=== PATIENT | female | born 1950 | race Caucasian/White ===

== ENCOUNTER → 2016-10-14 | Outpatient (CLI) | payer MEDICARE ==
--- NOTE | 2016-10-16 21:04 | BD ---
EXAMINATION TYPE: MG DEXA axial skeleton. DATE OF EXAM: 10/14/2016 8:55 AM COMPARISON: NONE CLINICAL HISTORY: 66-year-old female postmenopausal screening Height: 62 IN Weight: 149 LBS FRAX RISK QUESTIONS: Alcohol (3 or more units per day): NO Family History (Parent hip fracture): NO Glucocorticoids (More than 3mos): NO (Ex: prednisone, prednisolone, methylprednisolone, dexamethasone, and hydrocortisone). History of Fracture in Adulthood: YES LT ELBOW AGE 62 Secondary Osteoporosis: 1. Type 1 Diabetes: NO 2. Hyperthyroidism: NO 3. Menopause before 45: NO 4. Malnutrition: NO 5. Chronic liver disease: NO Rheumatoid Arthritis: NO Current Tobacco Use: NO RISK FACTORS HISTORY OF: Other Fractures since Age 49: YES LT ELBOW When: AGE 62 Active: YES Diet low in dairy products/other sources of calcium: YES Postmenopausal woman: AGE 44 Take estrogen and/or progesterone medications: NOT NOW How long: TOOK CONTROL FOR 5 YRS AGE 25-30 MEDICATIONS: Additional Medications: BIOTIN, CRANBERRY PILLS EXAM MEASUREMENTS: Bone mineral densitometry was performed using the [employer] System. Bone mineral density as measured about the Lumbar spine is: ----- L1-L4(G/cm2): 0.846 T Score Values are as follows: ----- L2: -2.9 ----- L3: -2.7 ----- L4: -3.2 ----- L1-L4: -2.8 Bone mineral density has: Decreased -15.5% since study of: 04/17/2001 Bone mineral density about the R hip (g/cm2): 0.701 Bone mineral density about the L hip (g/cm2): 0.704 T Score values are as follows: -----R Neck: -2.4 -----L Neck: -2.4 -----R Total: -1.9 -----L Total: -1.7 Bone mineral density has: Decreased -9.7% since study of: 04/17/2001 IMPRESSION: Osteoporosis (T Score less than -2.5) as noted by T Score values at the There is increased fracture risk and therapy is usually indicated based on age. Re-Screen 1-2 years. NOTE: T-SCORE=SD OF THE YOUNG ADULT MEAN.
--- NOTE | 2016-10-17 11:46 | MM ---
Reason for exam: screening (asymptomatic). Last mammogram was performed 1 year ago. History: Patient is postmenopausal. Benign right US cyst aspiration of the right breast, September 03, 2007. Benign excisional biopsy of the left breast, December 26, 2001. Took hormonal contraceptives for 5 years. Took estrogen for 5 years. Took progesterone for 5 years. Physical Findings: A clinical breast exam by your physician is recommended on an annual basis and results should be correlated with mammographic findings. MG 3D Screening Mammo W/Cad Bilateral CC and MLO view(s) were taken. Prior study comparison: October 12, 2015, bilateral MG screening mammo w CAD. October 09, 2014, bilateral MG screening mammo w CAD. October 08, 2012, bilateral digital screening mammo w/CAD. The breast tissue is heterogeneously dense. This may lower the sensitivity of mammography. Previous mammotome biopsy within the right and left breast. Asymmetric breast tissue right stable. There is no discrete abnormality. ASSESSMENT: Benign, BI-RAD 2 RECOMMENDATION: Routine screening mammogram of both breasts in 1 year.
== END | disposition home or self-care (01) ==
LOC: RADMAMWWP 08:52
PROVIDERS: ATTEND Family Medicine
DX: Z12.31 Encounter for screening mammogram for malignant neoplasm of breast (principal); M81.0 Age-related osteoporosis without current pathological fracture
CPT/HCPCS: 77080; 77063; G0202

== ENCOUNTER → 2018-05-10 | Outpatient (CLI) | payer MEDICARE ==
--- NOTE | 2018-05-11 14:05 | MM ---
Reason for exam: screening (asymptomatic). Last mammogram was performed 1 year and 7 months ago. History: Patient is postmenopausal. Benign right US cyst aspiration of the right breast, September 03, 2007. Benign excisional biopsy of the left breast, December 26, 2001. Took hormonal contraceptives for 5 years. Took estrogen for 5 years. Took progesterone for 5 years. Physical Findings: A clinical breast exam by your physician is recommended on an annual basis and results should be correlated with mammographic findings. MG 3D Screening Mammo W/Cad Bilateral CC and MLO view(s) were taken. Prior study comparison: October 14, 2016, bilateral MG 3d screening mammo w/cad. October 12, 2015, bilateral MG screening mammo w CAD. The breast tissue is heterogeneously dense. This may lower the sensitivity of mammography. Previous mammotome biopsy in the right and left breast. No significant changes when compared with prior studies. ASSESSMENT: Benign, BI-RAD 2 RECOMMENDATION: Routine screening mammogram of both breasts in 1 year.
== END | disposition home or self-care (01) ==
LOC: RADMAMWWP 08:02
PROVIDERS: ATTEND Family Medicine
DX: Z12.31 Encounter for screening mammogram for malignant neoplasm of breast (principal)
CPT/HCPCS: 77063; 77067

== ENCOUNTER → 2020-01-20 | Outpatient (CLI) | payer MEDICARE ==
--- NOTE | 2020-01-20 19:55 | BD ---
EXAMINATION TYPE: Axial Bone Density DATE OF EXAM: 01/20/2020 COMPARISON: NONE CLINICAL HISTORY: Postmenopausal screening Height: 5 FT 2 1/2 IN Weight: 148 FRAX RISK QUESTIONS: Alcohol (3 or more units per day): NO Family History (Parent hip fracture): NO Glucocorticoids (More than 3mos): NO (Ex: prednisone, prednisolone, methylprednisolone, dexamethasone, and hydrocortisone). History of Fracture in Adulthood: YES Secondary Osteoporosis: 1. Type 1 Diabetes: NO 2. Hyperthyroidism: NO 3. Menopause before 45: YES 4. Malnutrition: NO 5. Chronic liver disease: NO Rheumatoid Arthritis: NO Current Tobacco Use: NO RISK FACTORS HISTORY OF: Family History of Osteoporosis: NO Active: SOMEWHAT Postmenopausal woman: AROUND AGE 44 Take estrogen and/or progesterone medications: UNSURE OF HOW LONG MEDICATIONS: Additional Medications: CHOLESTEROL MEDS, NEXIUM Additional History: EXAM MEASUREMENTS: Bone mineral densitometry was performed using the [employer] System. Bone mineral density as measured about the Lumbar spine is: ----- L1-L4(G/cm2): 0.848 T Score Values are as follows: ----- L2: -2.7 ----- L3: -2.8 ----- L4: -3.0 ----- L1-L4: -2.8 Bone mineral density has: INCREASED 1.4 % since study of: 2017 Bone mineral density about the R hip (g/cm2): 0.700 Bone mineral density about the L hip (g/cm2): 0.666 T Score values are as follows: -----R Neck: -2.4 -----L Neck: -2.7 -----R Total: -2.2 -----L Total: -2.0 Bone mineral density has: DECREASED -5.1 % since study of: 2017 IMPRESSION: Osteoporosis (T Score less than -2.5). There is increased fracture risk and therapy is usually indicated based on age. Re-Screen 1-2 years. NOTE: T-SCORE=SD OF THE YOUNG ADULT MEAN.
--- NOTE | 2020-01-21 13:50 | MM ---
Reason for exam: screening (asymptomatic). Last mammogram was performed 1 year and 8 months ago. History: Patient is postmenopausal. Benign right US cyst aspiration of the right breast, September 03, 2007. Benign excisional biopsy of the left breast, December 26, 2001. Took hormonal contraceptives for 5 years. Took estrogen for 5 years. Took progesterone for 5 years. Physical Findings: A clinical breast exam by your physician is recommended on an annual basis and results should be correlated with mammographic findings. MG 3D Screening Mammo W/Cad Bilateral CC and MLO view(s) were taken. Prior study comparison: May 10, 2018, bilateral MG 3d screening mammo w/cad. October 14, 2016, bilateral MG 3d screening mammo w/cad. The breast tissue is heterogeneously dense. This may lower the sensitivity of mammography. There are benign appearing round calcifications bilaterally. Previous mammotome biopsy in the right and left breast. There is no discrete abnormality. ASSESSMENT: Benign, BI-RAD 2 RECOMMENDATION: Routine screening mammogram of both breasts in 1 year.
== END | disposition home or self-care (01) ==
LOC: RADMAMWWP 09:54
PROVIDERS: ATTEND Family Medicine
DX: Z12.31 Encounter for screening mammogram for malignant neoplasm of breast (principal); M81.0 Age-related osteoporosis without current pathological fracture; Z78.0 Asymptomatic menopausal state
CPT/HCPCS: 77063; 77067; 77080

== ENCOUNTER → 2021-02-15 | Outpatient (CLI) | payer MEDICARE ==
--- NOTE | 2021-02-16 13:40 | MM ---
Reason for exam: screening (asymptomatic). Last mammogram was performed 1 year and 1 month ago. History: Patient is postmenopausal. Benign right US cyst aspiration of the right breast, September 03, 2007. Benign excisional biopsy of the left breast, December 26, 2001. Took hormonal contraceptives for 5 years. Took estrogen for 5 years. Took progesterone for 5 years. Physical Findings: A clinical breast exam by your physician is recommended on an annual basis and results should be correlated with mammographic findings. MG 3D Screening Mammo W/Cad Bilateral CC and MLO view(s) were taken. XCCL view(s) were taken of the right breast. Prior study comparison: January 20, 2020, bilateral MG 3d screening mammo w/cad. May 10, 2018, bilateral MG 3d screening mammo w/cad. There are scattered fibroglandular densities. No significant changes when compared with prior studies. ASSESSMENT: Benign, BI-RAD 2 RECOMMENDATION: Routine screening mammogram of both breasts in 1 year.
== END | disposition home or self-care (01) ==
LOC: RADMAMWWP 11:16
PROVIDERS: ATTEND Family Medicine
DX: Z12.31 Encounter for screening mammogram for malignant neoplasm of breast (principal)
CPT/HCPCS: 77063; 77067

== ENCOUNTER → 2022-09-12 | Outpatient (CLI) | payer MEDICARE ==
--- NOTE | 2022-09-12 13:23 | BD ---
EXAMINATION TYPE: Axial Bone Density DATE OF EXAM: 09/12/2022 CLINICAL HISTORY: 72 years old Female. ICD-10 CODE: M81.0 OSTEOPOROSIS Height: 62 Weight: 158.3 FRAX RISK QUESTIONS: Alcohol (3 or more units per day): no Family History (Parent hip fracture): no Glucocorticoids (More than 3mos): no (Ex: prednisone, prednisolone, methylprednisolone, dexamethasone, and hydrocortisone). History of Fracture in Adulthood: yes Secondary Osteoporosis: 1. Type 1 Diabetes: no 2. Hyperthyroidism: no 3. Menopause before 45: no 4. Malnutrition: no 5. Chronic liver disease: no Rheumatoid Arthritis: no Current Tobacco Use: no RISK FACTORS HISTORY OF: Surgery to Spine/Hip(right/left)/Wrist (right/left): no Family History of Osteoporosis: no Active: yes Diet low in dairy products/other sources of calcium: yes Postmenopausal woman: yes Lost more than 2 inches in height since high school: no MEDICATIONS: Additional History: EXAM MEASUREMENTS: Bone mineral densitometry was performed using the [employer] System. Bone mineral density as measured about the Lumbar spine is: ----- L1-L4(G/cm2): 0.835 T Score Values are as follows: ----- L1: -2.4 ----- L2: -2.7 ----- L3: -2.6 ----- L4: 3.7 ----- L1-L4: -2.9 Z Score Values are as follows: ----- L1: -0.9 ----- L2: -1.2 ----- L3: -1.1 ----- L4: -2.2 ----- L1-L4: -1.4 Bone mineral density has: decreased -1.5 % since study of: 01.20.2020 Bone mineral density about the R hip (g/cm2): 0.733 Bone mineral density about the L hip (g/cm2): 0.752 T Score values are as follows: -----R Neck: -2.5 -----L Neck: -2.6 -----R Total: -2.2 -----L Total: -2.0 Z Score values are as follows: -----R Neck: -0.7 -----L Neck: -0.6 -----R Total: -0.8 -----L Total: -0.9 Bone mineral density has: 0.0 % since study of: 01.20.2020 FRAX%s: The graph provided illustrates a 24.4% chance for a major osteoporotic fx and a 7.0% chance f or the hips probability for fx in 10 years time. IMPRESSION: Osteoporosis (T Score less than -2.5). There is increased fracture risk and therapy is usually indicated based on age. Re-Screen 1-2 years. NOTE: T-SCORE=SD OF THE YOUNG ADULT MEAN.
--- NOTE | 2022-09-13 11:46 | MM ---
Reason for Exam: Screening (asymptomatic). Last mammogram was performed 1 year(s) and 7 month(s) ago. Patient History: Menarche at age 11. First Full-Term at age 18. Postmenopausal. Patient used Estrogen for 5 years. Patient used Progesterone for 5 years. Hormonal Contraceptives for 5 years until age 29. 09/03/2007, Benign Cyst Aspiration on the right side. 12/26/2001, Benign Excisional Biopsy on the left side. Risk Values: Romelia 5 year model risk: 1.5%. NCI Lifetime model risk: 3.7%. Prior Study Comparison: 05/10/2018 Bilateral Screening Mammogram, [facility]. 01/20/2020 Bilateral Screening Mammogram, [facility]. 02/15/2021 Bilateral Screening Mammogram, [facility]. Tissue Density: The breast tissue is heterogeneously dense. This may lower the sensitivity of mammography. Findings: Analyzed By CAD. Bilateral biopsy clips. Stable masslike appearance of fibroglandular tissue bilaterally. There is no suspicious group of microcalcifications or new suspicious mass in either breast. Overall Assessment: Benign, BI-RAD 2 Management: Screening Mammogram of both breasts in 1 year. A clinical breast exam by your physician is recommended on an annual basis and results should be correlated with mammographic findings. [facility] will attempt to contact patient to return for supplemental views and ultrasound if indicated. Electronically signed and approved by: Magdaleno Thomson DO
== END | disposition home or self-care (01) ==
LOC: RADMAMWWP 10:34
PROVIDERS: ATTEND Family Medicine
DX: Z12.31 Encounter for screening mammogram for malignant neoplasm of breast (principal); M81.0 Age-related osteoporosis without current pathological fracture; M85.89 Other specified disorders of bone density and structure, multiple sites; Z78.0 Asymptomatic menopausal state
CPT/HCPCS: 77063; 77067; 77080

== ENCOUNTER → 2022-12-07 | Outpatient (CLI) | payer MEDICARE ==
[2022-12-07 10:35] LABS: African American GFR (CKD) >90 (>60 ml/min/1.73 sqM); Blood Urea Nitrogen 17 mg/dL (7-17); Non-African American GFR(CKD) >90 (>60 ml/min/1.73 sqM)
--- NOTE | 2022-12-07 11:26 | CT ---
EXAMINATION TYPE: CT brain w con CT DLP: 1098.80 mGycm, Automated exposure control for dose reduction was used. DATE OF EXAM: 12/07/2022 11:14 AM COMPARISON: None. CLINICAL INDICATION:Female, 72 years old with history of R42 DIZZINESS AND GIDDINESS; PHH, Dizziness, vertigo TECHNIQUE: Axial CT images of the brain were obtained after the uneventful administration of 100 cc o f Isovue-[address] intraven[address] One or more CT dose reduction strategies were utilized during this examin ation. Coronal and sagittal reformats reviewed. FINDINGS: Extra-axial spaces: No abnormal extra-axial fluid collections. Ventricular system: Within normal limits Cerebral parenchyma: Mild cerebral atrophy. No acute intraparenchymal hemorrhage or mass effect. The kraus-white junction is well differentiated. Scattered hypoattenuating areas are seen within the whit e matter. No abnormal enhancement is seen after the administration of intravenous contrast. Cerebellum: Unremarkable. Mass effect: No evidence of midline shift. Intracranial vasculature: unremarkable Soft tissues: Normal. Calvarium/osseous structures: No depressed skull fracture. Paranasal sinuses and mastoid air cells: Clear. Visualized orbits: Orbital contents are intact. IMPRESSION: 1. No acute intracranial process and no evidence to suggest intracranial mass. 2. Nonspecific white matter changes, likely secondary to chronic small vessel ischemic disease.
== END | disposition home or self-care (01) ==
LOC: RADCTMAIN 09:36
PROVIDERS: ATTEND Family Medicine
DX: Z01.812 Encounter for preprocedural laboratory examination (principal); R90.82 White matter disease, unspecified; R42 Dizziness and giddiness
CPT/HCPCS: 82565; 84520; 70460; 36415; Q9967

== ENCOUNTER 2022-12-31 00:48 | Emergency (ER) | payer MEDICARE ==
[2022-12-31 01:02] VITALS: RESP 18; TEMP 97.8
[2022-12-31] MEDS ORDERED: FAMOTIDINE 20 MG TAB PO STA (01:11)
[2022-12-31] MEDS ORDERED: hydrOXYzine HCL 25 MG TAB PO STA (01:11)
[2022-12-31] MEDS ORDERED: DEXAMETHASONE SOD PHOSPHATE 10 MG/ML 1 ML VIAL IM STA (01:11)
--- NOTE | 2022-12-31 01:58 | ED ---
Allergic Reaction HPI - General Chief complaint: Allergic Reaction Stated complaint: Allergic Reaction Time Seen by Provider: 12/31/22 01:03 Source: patient, RN notes reviewed, old records reviewed Mode of arrival: ambulatory Limitations: no limitations - History of Present Illness Initial Comments: This is a 72-year-old female to the emergency department today. Patient presented after seeing bug bite likely bee sting. Patient sustained bug bite bee sting to leg. Left leg about 5 hours ago. Patient noticed tonight that she developed some scratchiness in her throat and difficulty swallowing with some lip tingling. 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 No tongue swelling no shortness of breath. Patient is mildly anxious on arrival. Patient does have a significant history of ALLERGIC reaction to bee sting MD Complaint: allergic reaction Exposure: unknown, insect bite Symptoms: itching, lip swelling, difficulty swallowing Severity: mild Treatment Prior to Arrival: none Previous Allergy History: none - Related Data Previous Rx's Medication Instructions Recorded Famotidine [Pepcid] 40 mg PO BID #28 tablet 12/31/22 hydrOXYzine HCL [Atarax] 25 mg PO TID PRN #15 tab 12/31/22 predniSONE 50 mg PO DAILY #5 tab 12/31/22 Allergies Allergy/AdvReac Type Severity Reaction Status Date / Time bee venom protein (honey bee) Allergy Rash/Hives Verified 12/31/22 00:56 Sulfa (Sulfonamide Allergy Unknown Verified 12/31/22 00:56 Antibiotics) Childhood Review of Systems ROS Statement: Those systems with pertinent positive or pertinent negative responses have been documented in the HPI. ROS Other: All systems not noted in ROS Statement are negative. Past Medical History Past Medical History: No Reported History History of Any Multi-Drug Resistant Organisms: None Reported Past Surgical History: Tubal Ligation Past Psychological History: No Psychological Hx Reported Smoking Status: Never smoker Past Alcohol Use History: Occasional Past Drug Use History: None Reported General Exam Limitations: no limitations General appearance: alert, in no apparent distress Head exam: Present: atraumatic, normocephalic, normal inspection Eye exam: Present: normal appearance, PERRL, EOMI. Absent: scleral icterus, conjunctival injection, periorbital swelling ENT exam: Present: normal exam, mucous membranes moist Neck exam: Present: normal inspection. Absent: tenderness, meningismus, lymphadenopathy Respiratory exam: Present: normal lung sounds bilaterally. Absent: respiratory distress, wheezes, rales, rhonchi, stridor Cardiovascular Exam: Present: regular rate, normal rhythm, normal heart sounds. Absent: systolic murmur, diastolic murmur, rubs, gallop, clicks GI/Abdominal exam: Present: soft, normal bowel sounds. Absent: distended, tenderness, guarding, rebound, rigid Extremities exam: Present: normal inspection, full ROM, normal capillary refill. Absent: tenderness, pedal edema, joint swelling, calf tenderness Back exam: Present: normal inspection Neurological exam: Present: alert, oriented X3, CN II-XII intact Psychiatric exam: Present: normal affect, normal mood Skin exam: Present: warm, dry, intact, normal color. Absent: rash Course Vital Signs 12/31/22 12/31/22 00:57 01:58 Temperature 97.8 F Pulse Rate 116 H 80 Respiratory 18 18 Rate Blood Pressure 145/93 132/72 O2 Sat by Pulse 94 L 96 Oximetry - Reevaluation(s) Reevaluation #1: 12/31/22 01:57 Medical record is reviewed Reevaluation #2: 12/31/22 01:57 Patient is showing some improvement here in the ER Reevaluation #3: 12/31/22 02:15 Symptoms are dramatically improved Reevaluation #4: 12/31/22 01:58 Was pt. sent in by a medical professional or institution ([facility] [place], [employer], urgent care, hospital, or fpc...) When possible be specific @ -no Did you speak to anyone other than the patient for history (EMS, parent, family, police, friend...)? What history was obtained from this source @ -no Did you review nursing and triage notes (agree or disagree)? Why? @ -agree Are old charts reviewed (outside hosp., previous admission, EMS record, old EKG, old radiological studies, urgent care reports/EKG's, fpc records)? Report findings @ -yes Differential Diagnosis (chest pain, altered mental status, abdominal pain women, abdominal pain men, vaginal bleeding, weakness, fever, dyspnea, syncope, headache, dizziness, GI bleed, back pain, seizure, CVA, palpatations, mental health, musculoskeletal)? @ -prior EKG interpreted by me (3pts min.). @ -no X-rays interpreted by me (1pt min.). @ -no CT interpreted by me (1pt min.). @ -no U/S interpreted by me (1pt. min.). @ -no What testing was considered but not performed or refused? (CT, X-rays, U/S, labs)? Why? @ -none What meds were considered but not given or refused? Why? @ -none Did you discuss the management of the patient with other professionals (professionals i.e. DrBhavana, PA, BEAUTY CULTURE TEACHER, lab, RT, psych nurse, psychosocial rehabilitation counselor, identity management developer, teacher, special assets officer, shoe parts caser)? Give summary @ -no Was smoking cessation discussed for >3mins.? @ -no Was critical care preformed (if so, how long)? @ -no Were there social determinants of health that impacted care today? How? (Homelessness, low income, unemployed, alcoholism, drug addiction, transportation, low edu. Level, literacy, decrease access to med. care, [facility], rehab)? @ -none Was there de-escalation of care discussed even if they declined (Discuss DNR or withdrawal of care, Hospice)? DNR status @ -no What co-morbidities impacted this encounter? (DM, HTN, Smoking, COPD, CAD, Cancer, CVA, ARF, Chemo, Hep., AIDS, mental health diagnosis, sleep apnea, morbid obesity)? @ -none Was patient admitted / discharged? Hospital course, mention meds given and route, prescriptions, significant lab abnormalities, going to OR and other pertinent info. @ - 72 female to the emergency department for evaluation, bee sting and reaction. Patient feels improved here in the emergency department can be discharged home no current distress Discharged Undiagnosed new problem with uncertain prognosis? @ -no Drug Therapy requiring intensive monitoring for toxicity (Heparin, Nitro, Insulin, Cardizem)? @ -no Were any procedures done? @ -no Diagnosis/symptom? @ -Bee sting, anaphylaxis Acute, or Chronic, or Acute on Chronic? @ -Acute Uncomplicated (without systemic symptoms) or Complicated (systemic symptoms)? @ -Complicated Side effects of treatment? @ -no Exacerbation, Progression, or Severe Exacerbation? @ -exacerbation Poses a threat to life or bodily function? How? (Chest pain, USA, PA, pneumonia, PE, COPD, DKA, ARF, appy, cholecystitis, CVA, Diverticulitis, Homicidal, Suicidal, threat to staff... and all critical care pts) @ -yes anaphylaxis Medical Decision Making - Medical Decision Making 72 female to the emergency department for evaluation, bee sting and reaction. Patient feels improved here in the emergency department can be discharged home no current distress Disposition Clinical Impression: Allergic reaction to insect sting Disposition: HOME SELF-CARE Condition: Good Instructions (If sedation given, give patient instructions): Insect Bite or Sting (ED), Anaphylaxis (ED) Prescriptions: hydrOXYzine HCL [Atarax] 25 mg PO TID PRN #15 tab PRN Reason: Itching Famotidine [Pepcid] 40 mg PO BID #28 tablet predniSONE 50 mg PO DAILY #5 tab Is patient prescribed a controlled substance at d/c from ED?: No Referrals: Kristine Peterson MD [Primary Care Provider] - 1-2 days Time of Disposition: 02:15
[2022-12-31 01:59] VITALS: BP 132/72; PULSE 80
== END 2022-12-31 02:24 | disposition home or self-care (01) ==
LOC: EC 00:48
DX: T63.441A Toxic effect of venom of bees, accidental (unintentional), initial encounter (principal); Z88.2 Allergy status to sulfonamides; Z91.030 Bee allergy status
CPT/HCPCS: 99283; 96372; J1100

== ENCOUNTER → 2024-02-28 | Outpatient (CLI) | payer MEDICARE ==
--- NOTE | 2024-03-04 08:32 | MM ---
Reason for Exam: Screening (asymptomatic). Last mammogram was performed 1 year(s) and 5 month(s) ago. Patient History: Menarche at age 11. First Full-Term at age 18. Postmenopausal. Patient used Estrogen for 5 years. Patient used Progesterone for 5 years. Hormonal Contraceptives for 5 years until age 29. 09/03/2007, Benign Cyst Aspiration on the right side. 12/26/2001, Benign Excisional Biopsy on the left side. Risk Values: Romelia 5 year model risk: 1.5%. NCI Lifetime model risk: 3.5%. Prior Study Comparison: 01/20/2020 Bilateral Screening Mammogram, [facility]. 02/15/2021 Bilateral Screening Mammogram, [facility]. 09/12/2022 Bilateral MG 3D screening mammo w/cad, [facility]. Tissue Density: The breasts are heterogeneously dense, which may obscure small masses. Findings: Analyzed By CAD. There is no suspicious group of microcalcifications or new suspicious mass in either breast. Overall Assessment: Benign, BI-RAD 2 Management: Screening Mammogram of both breasts in 1 year. . Patient should continue monthly self-breast exams. A clinical breast exam by your physician is recommended on an annual basis. This exam should not preclude additional follow-up of suspicious palpable abnormalities. Note on Romelia scores and lifetime risk: 1. A Romelia score greater than 3% is considered moderate risk. If this is the case, consider specialist referral to assess eligibility for a risk reducing agent. 2. If overall lifetime risk for the development of breast cancer is 20% or higher, the patient may qualify for future screening with alternating mammogram and breast MRI. [facility], , 03/04/2024 8:29 AM. Electronically signed and approved by: Main Jeffery M.D. Radiologis
== END | disposition home or self-care (01) ==
LOC: RADMAMWWP 10:00
PROVIDERS: ATTEND Family Medicine
CPT/HCPCS: 77063; 77067

== ENCOUNTER 2024-05-14 08:35 | Day surgery (SDC) | payer MEDICARE ==
[2024-05-10 14:11] VITALS: BMI 26.5
--- NOTE | 2024-05-14 07:34 | P.HPIHPCON ---
History of Present Illness H&P Date: 05/14/24 Chief Complaint: Stress urinary incontinence This is a 73-year-old female with history of stress urinary incontinence, has failed Kegel exercises and continues to have symptoms. Underwent a urodynamic which was consistent with stress incontinence, option of a sling versus bulking agent were discussed. She agreed to proceed with a transobturator sling. Aware of the risk which includes but not limited to bleeding, infection, persistent incontinence, urinary retention. Discussed also I will be using a mesh sling. Aware of the risk of mesh erosion into the bladder, urethra and vagina. She understood all the risk and agreed to proceed Consent for Procedure: I have explained the operation/procedure to the patient, including the risks, benefits, side effects, alternative therapies (including not receiving the proposed treatment or service), the likelihood of the patient achieving his/her goals, and potential recuperation problems for the procedure/sedation/analgesia, as well as any blood products, if indicated. I also explained to the patient the risks, benefits and side effects of the alternatives, as well as the risks related to not receiving the proposed procedure, care, treatment, or services. Past Medical History Past Medical History: Cancer, GERD/Reflux, Hyperlipidemia Additional Past Medical History / Comment(s): Osteoporosis. Hx melonoma-no c hemo, no radiation, Had spot removed. History of Any Multi-Drug Resistant Organisms: None Reported Past Surgical History: Orthopedic Surgery, Tubal Ligation Additional Past Surgical History / Comment(s): Fx elbow w/surgery. Colonoscopy Past Anesthesia/Blood Transfusion Reactions: No Reported Reaction Additional Past Anesthesia/Blood Transfusion Reaction / Comment(s): No hx of blood transfusion to date. Smoking Status: Former smoker - Past Family History Sister(s) Family Medical History: Cancer Additional Family Medical History / Comment(s): Stomach cancer. Medications and Allergies Home Medications Medication Instructions Recorded Confirmed Type Alendronate Sodium [Fosamax] 70 mg PO FR 05/10/24 05/10/24 History Esomeprazole Magnesium [NexIUM] 40 mg PO QAM 05/10/24 05/10/24 History Ibuprofen/Diphenhydramine HCl 1 each PO HS 05/10/24 05/10/24 History [Advil Pm Liqui-Gels] Ibuprophen(Unknown Dose) 1 dose PO Q8H PRN 05/10/24 05/10/24 History Multivitamins, Thera [Multivitamin 1 tab PO QAM 05/10/24 05/10/24 History (formulary)] Rosuvastatin [Crestor] 5 mg PO QAM 05/10/24 05/10/24 History Vit D3 (Unknown Dose) 1 dose PO QAM 05/10/24 05/10/24 History Allergies Allergy/AdvReac Type Severity Reaction Status Date / Time bee venom protein (honey bee) Allergy Rash/Hives Verified 05/10/24 13:53 Sulfa (Sulfonamide Allergy Unknown Verified 05/10/24 13:53 Antibiotics) Childhood hornet venom AdvReac Swelling/tongue-face Verified 05/10/24 13:53 swelling Surgical - Exam - General no distress, no pain - Eyes normal ocular movement, no pale - ENT normal nares, normal mucosa - Respiratory normal expansion, normal respiratory effort - Abdomen Abdomen: soft, non tender - Psychiatric oriented to time, oriented to person, oriented to place Assessment and Plan Assessment: OR for transobturator sling
[~2024-05-14 08:35] MED LIST: HYDROmorphone 0.5 MG/0.5 ML SYRINGE IVP PRN; MIDAZOLAM 2 MG/2 ML VIAL IV PRN
[2024-05-14] MEDS: IV FLUID CONTINUATION 1,000 ML IV ONE (09:32)
[2024-05-14] MEDS: LACTATED RINGERS 1,000 ML IV SCH (09:52)
[2024-05-14] MEDS: DEXAMETHASONE SOD PHOSPHATE 4 MG/ML 1 ML VIAL IV ONE (09:52)
[2024-05-14] MEDS: ONDANSETRON 4 MG/2 ML VIAL IVP ONE (09:52)
[2024-05-14] MEDS ORDERED: fentaNYL (PF) 50 MCG/ML 2 ML AMP ONE (10:25)
[2024-05-14] MEDS ORDERED: ePHEDrine 50 MG/ML 1 ML VIAL ONE (10:25)
[2024-05-14] MEDS ORDERED: LIDOCAINE 1% INJ 10MG/ML (20 ML MDV) ONE (10:25)
[2024-05-14] MEDS ORDERED: PROPOFOL 10 MG/ML 20 ML VIAL IV ONE (10:25)
[2024-05-14] MEDS ORDERED: HYDROcodone/APAP 5-325MG 1 EACH TAB PO PRN (10:42)
[2024-05-14] MEDS ORDERED: ONDANSETRON 4 MG/2 ML VIAL IVP PRN (10:43)
[2024-05-14] MEDS: LIDOCAINE 1%-EPI 1:100,000 20 ML VIAL SQ ONE ×2 (10:55→11:19)
--- NOTE | 2024-05-14 13:21 | P.OP ---
Date of Procedure: 05/14/24 Preoperative Diagnosis: Stress urinary incontinence Postoperative Diagnosis: Same Procedure(s) Performed: Transobturator mid urethral sling Implants: Obtryx mid urethral sling Anesthesia: ESTHER Surgeon: Susahnt Ames Estimated Blood Loss (ml): 50 Pathology: none sent Condition: stable Disposition: PACU Indications for Procedure: This is a 73-year-old female with history of stress urinary incontinence, has failed Kegel exercises and continues to have symptoms. Underwent a urodynamic which was consistent with stress incontinence, option of a sling versus bulking agent were discussed. She agreed to proceed with a transobturator sling. Aware of the risk which includes but not limited to bleeding, infection, persistent incontinence, urinary retention. Discussed also I will be using a mesh sling. Aware of the risk of mesh erosion into the bladder, urethra and vagina. She understood all the risk and agreed to proceed Description of Procedure: The patient was taken to the operating room and placed in the dorsal lithotomy position, with her legs supported in Luis stirrups. The perineum, lower abdomen, and vagina were prepped and draped sterilely. A 16-Malay Trinh catheter was placed. Silk sutures were placed to retract the labia laterally on each side. 0.5% Marcaine with epinephrine was injected submucosally within the anterior vaginal wall, over the urethra. The scalpel was then used to make an anterior midline vaginal incision over the urethra. Metzenbaum scissors were used to dissect laterally within the submucosal plane, to the inferior pubic ramus. The scalpel was used to make bilateral groin incisions at the level of the clitoris. Subcutaneous tissues were spread with a hemostat. Each of the helical needles were passed through the respective groin incision, and turned such that the needle tip wrapped around the pubis. The needle tips were guided digitally into the vaginal incision. The Obtryx graft, which had been previously soaked in antibiotic solution, was secured to the needle tips in the standard fashion. The needles were then withdrawn, and the position of the graft was adjusted such that it overlie the mid urethra, as desired. With a hemostat placed between the graft and the urethra to prevent tension of the graft over the urethra, the plastic sheath was removed from the ends of the graft. The ends of the graft were cut beneath the skin incisions, and these incisions were closed using 4-0 Vicryl suture in a subcuticular fashion. Hemostasis within the vaginal incision was adequate, and the vaginal incision was closed using 2-0 Vicryl suture in a running fashion. Cystoscopy was performed. The 30 lens was used to introduce the 19-Malay Storz cystoscopic sheath through the urethra and into the bladder under direct vision. The urethra and bladder were unremarkable. There was no evidence of perforation. Both ureteral orifices were of normal anatomic location and configuration, and clear urine effluxed from both. No tumors or foreign bodies were seen. The cystoscope was removed, and the Trinh catheter was replaced into the bladder. Vaginal packing was placed. All sponge and needle counts were correct. The patient tolerated the procedure well was taken to the recovery room in stable condition.
[2024-05-14] MEDS: KETOROLAC 15 MG/ML 1 ML VIAL IVP SCH (18:07)
[2024-05-14] MEDS: HEPARIN SODIUM,PORCINE 5,000 UNIT/ML 1 ML VIAL SQ SCH (18:07)
[2024-05-14] MEDS: DEXTROSE 5%-0.45% NACL 1,000 ML IV SCH (18:08)
[2024-05-14] MEDS: CIPROFLOXACIN HCL 500 MG TAB PO SCH (20:16)
[2024-05-15] MEDS: PANTOPRAZOLE 40 MG TABLET PO SCH (06:34)
[2024-05-15] MEDS: ATORVASTATIN 10 MG TAB PO SCH (08:35)
[2024-05-15 09:39] VITALS: BP 112/59; PULSE 66; RESP 16; TEMP 97.9
--- NOTE | 2024-05-15 18:54 | P.DS ---
Providers Attending physician: Sushant Ames MD [facility] Course: This is a 73-year-old female with history of stress urinary incontinence, underwent a transobturator sling on May 14. Please see op note dated May 14 for surgery details. Patient was admitted to the hospital postoperatively. Trinh catheter in vaginal packing was removed on postop day #1. She was able to void after catheter removal. She was discharged home on postop day #1 at time of discharge she was tolerating a diet, ambulating, and pain was controlled Plan - Discharge Summary Discharge Rx Participant: No New Discharge Prescriptions: New Ketorolac [Toradol] 10 mg PO Q6HR PRN #15 tab PRN Reason: Pain No Action Alendronate Sodium [Fosamax] 70 mg PO FR Vit D3 (Unknown Dose) 1 dose PO QAM Ibuprophen(Unknown Dose) 1 dose PO Q8H PRN PRN Reason: Pain Rosuvastatin [Crestor] 5 mg PO QAM Multivitamins, Thera [Multivitamin (formulary)] 1 tab PO QAM Esomeprazole Magnesium [NexIUM] 40 mg PO QAM Ibuprofen/Diphenhydramine HCl [Advil Pm Liqui-Gels] 1 each PO HS Ciprofloxacin HCl [Cipro] 500 mg PO BID Discharge Medication List Alendronate Sodium [Fosamax] 70 mg PO FR 05/10/24 [History] Esomeprazole Magnesium [NexIUM] 40 mg PO QAM 05/10/24 [History] Ibuprofen/Diphenhydramine HCl [Advil Pm Liqui-Gels] 1 each PO HS 05/10/24 [History] Ibuprophen(Unknown Dose) 1 dose PO Q8H PRN 05/10/24 [History] Multivitamins, Thera [Multivitamin (formulary)] 1 tab PO QAM 05/10/24 [History] Rosuvastatin [Crestor] 5 mg PO QAM 05/10/24 [History] Vit D3 (Unknown Dose) 1 dose PO QAM 05/10/24 [History] Ciprofloxacin HCl [Cipro] 500 mg PO BID 05/14/24 [History] Ketorolac [Toradol] 10 mg PO Q6HR PRN #15 tab 05/15/24 [Rx] Follow up Appointment(s)/Referral(s): Sushant Ames MD [STAFF PHYSICIAN] - 05/24/24 9:20 am Discharge Disposition: HOME SELF-CARE
[2024-05-17] MEDS ORDERED: NON FORMULARY DRUG (Alendronate Sodium [Fosamax] 70 MG Tablet) PO SCH (10:40)
== END 2024-05-15 13:35 | disposition home or self-care (01) ==
LOC: OR 08:35 → 4SSUR 11:27 → OR 05-15 13:35
PROVIDERS: ATTEND Urology
DX: N39.3 Stress incontinence (female) (male) (principal); E78.5 Hyperlipidemia, unspecified; K21.9 Gastro-esophageal reflux disease without esophagitis; M81.0 Age-related osteoporosis without current pathological fracture; Z79.83 Long term (current) use of bisphosphonates; Z79.899 Other long term (current) drug therapy; Z87.891 Personal history of nicotine dependence; Z91.030 Bee allergy status; Z88.2 Allergy status to sulfonamides; Z88.1 Allergy status to other antibiotic agents
CPT/HCPCS: 57288; C1771; J1644 ×2; J1100; J0690; J2405; J1885 ×2